=== PATIENT | male | born 1995 | race Two or more races ===

== ENCOUNTER 2018-06-05 15:00 | Emergency (ER) | payer OTHER ==
--- NOTE | 2018-06-05 16:59 | EDM.PDOC ---
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 Pt claims that he has been wearing enough warm clothing while working outdoor. Today when he was working, it has been charleen day and temp was around 18 F form being subzero for past few days. He started to feel hot. He continued to work and felt dizzy and tired. He took off his warm clothing and he felt better. But has been feeling tired and hence he came into emergency room.. Onset: Today Onset Date: 06/05/18 Onset Time: 13:00 Duration: Resolved Prior to Arrival Severity: Mild Improves with: Reports: None Worsens with: Reports: None Associated Symptoms: Reports: Weakness. Denies: Confusion, Chest Pain, Cough, Diaphoresis, Fever/Chills, Headaches, Nausea/Vomiting, Rash, Seizure, Shortness of Breath, Syncope ED ROS GENERAL - Review of Systems Review Of Systems: See Below Constitutional: Reports: Weakness. Denies: Fever, Chills HEENT: Denies: Rhinitis, Throat Pain, Throat Swelling Respiratory: Denies: Shortness of Breath, Cough, Sputum Cardiovascular: Denies: Chest Pain, Lightheadedness GI/Abdominal: Denies: Abdominal Pain, Nausea, Vomiting Skin: Denies: Bruising, Pruritis, Rash Neurological: Reports: Dizziness, Weakness. Denies: Confusion, Headache, Numbness, Tingling ED EXAM, GENERAL - Physical Exam Exam: See Below Exam Limited By: No Limitations General Appearance: Alert, WD/WN, No Apparent Distress Eye Exam: Bilateral Eye: EOMI, PERRL Ears: Normal External Exam, Normal Canal, Hearing Grossly Normal, Normal TMs Ear Exam: Bilateral Ear: Auricle Normal, Canal Normal, TM normal Nose: Normal Inspection, Normal Mucosa, No Blood Throat/Mouth: Normal Inspection, Normal Lips, Normal Teeth, Normal Gums, Normal Oropharynx, Normal Voice, No Airway Compromise Head: Atraumatic, Normocephalic Neck: Normal Inspection, Supple, Non-Tender, Full Range of Motion Respiratory/Chest: No Respiratory Distress, Lungs Clear, Normal Breath Sounds, No Accessory Muscle Use, Chest Non-Tender Cardiovascular: Normal Peripheral Pulses, Regular Rate, Rhythm, No Edema, No Gallop, No JVD, No Murmur, No Rub GI/Abdominal: Normal Bowel Sounds, Soft, Non-Tender, No Organomegaly, No Distention, No Abnormal Bruit, No Mass Extremities: Normal Inspection, Normal Range of Motion, Non-Tender, Normal Capillary Refill, No Pedal Edema Neurological: Alert, Oriented, CN II-XII Intact, Normal Cognition, Normal Gait, Normal Reflexes, No Motor/Sensory Deficits Skin Exam: Warm, Intact EKG INTERPRETATION EKG Date: 06/05/18 Rhythm: NSR Rate (Beats/Min): 74 [place]: Normal Course - Vital Signs Text/Narrative:: Pt's vitals are stable and his clinical exam is normal. His EKG is in Normal sinus rhythm and his chest X-ray is normal. His CBC and CMP appears normal. Pt reassured that he might have felt mild heat exhaustion from heat trapping from warm clothing, as he felt better as soon as he took of his clothing. t is feeling fine now.Presently symptomatic. Reassured. advised to drink plenty of fluids. Followup in clinic if symptoms worsen. Last Recorded V/S: Last Vital Signs Temp 97.1 F 06/05/18 15:47 Pulse 74 06/05/18 15:47 Resp 16 06/05/18 15:47 BP 154/82 H 06/05/18 15:47 Pulse Ox 99 06/05/18 15:47 - Orders/Labs/Meds Orders: Active Orders 24 hr Category Date Time Status EKG Documentation Completion [RC] ASDIRECTED Care 06/05/18 15:24 Active Chest 2V [CR] Stat Exams 06/05/18 15:24 Taken Labs: Laboratory Tests 06/05/18 06/05/18 Range/Units 16:00 16:00 WBC 7.3 (4.0-11.0) K/uL RBC 5.94 (4.50-6.50) M/uL Hgb 16.7 (13.0-18.0) g/dL Hct 47.7 (40.0-54.0) % MCV 80 (76-96) fL MCH 28.1 (27.0-32.0) pg MCHC 35.0 (31.0-35.0) g/dL RDW 13.0 (11.0-16.0) % Plt Count 231 (150-400) K/uL MPV 8.9 (6.0-10.0) fL Neut % (Auto) 77.4 H (45.0-70.0) % Lymph % (Auto) 16.1 L (20.0-40.0) % [place] % (Auto) 5.9 (3.0-10.0) % Eos % (Auto) 0.3 L (1.0-5.0) % Baso % (Auto) 0.3 (0.0-0.5) % Neut # (Auto) 5.64 (2.00-7.50) K/uL Lymph # (Auto) 1.17 L (1.50-4.00) K/uL [place] # (Auto) 0.43 (0.20-0.80) K/uL Eos # (Auto) 0.02 L (0.04-0.40) K/uL Baso # (Auto) 0.02 (0.02-0.10) K/uL Sodium 142 (136-145) mmol/L Potassium 4.0 (3.5-5.1) mmol/L Chloride 102 (98-107) mmol/L Carbon Dioxide 28.8 (21.0-32.0) mmol/L Anion Gap 15.2 H (5.0-15.0) mmol/L BUN 14 (8-26) mg/dL Creatinine 0.95 (0.70-1.30) mg/dL Est Cr Clr Drug Dosing 137.84 mL/min Estimated GFR (MDRD) > 60 (>60) MLS/MIN BUN/Creatinine Ratio 14.7 (6-25) Glucose 85 (74-100) mg/dL Calcium 9.4 (8.5-10.1) mg/dL Total Bilirubin 0.5 (0.0-1.0) mg/dL AST 59 H (15-37) U/L ALT 144 H (12-78) U/L Alkaline Phosphatase 57 (46-116) U/L Total Protein 8.4 H (6.4-8.2) g/dL Albumin 4.4 (3.4-5.0) g/dL Globulin 4.0 (2.2-4.2) g/dL Albumin/Globulin Ratio 1.1 (0.8-2.0) Departure - Departure Time of Disposition: 16:30 Disposition: Home, Self-Care 01 Condition: Good Clinical Impression: Heat exhaustion - Discharge Information *PRESCRIPTION DRUG MONITORING PROGRAM REVIEWED*: Not Applicable *COPY OF PRESCRIPTION DRUG MONITORING REPORT IN PATIENT PHILLIP: Not Applicable Instructions: Heat Exhaustion Information Referrals: PCP,None [Primary Care Provider] - Care Plan Goals: Return to clinic if symptoms persist or worsen. - Problem List & Annotations (1) Heat exhaustion SNOMED Code(s): 05141606 Code(s): T67.5XXA - HEAT EXHAUSTION, UNSPECIFIED, INITIAL ENCOUNTER Status : Acute - Problem List Review Problem List Initiated/Reviewed/Updated: Yes - My Orders Last 24 Hours: My Active Orders 06/05/18 15:24 EKG Documentation Completion [RC] ASDIRECTED Chest 2V [CR] Stat - Assessment/Plan Last 24 Hours: My Active Orders 06/05/18 15:24 EKG Documentation Completion [RC] ASDIRECTED Chest 2V [CR] Stat Assessment:: Mild heat exhaustion Plan: Pt's vitals are stable and his clinical exam is normal. His EKG is in Normal sinus rhythm and his chest X-ray is normal. His CBC and CMP appears normal. Pt reassured that he might have felt mild heat exhaustion from heat trapping from warm clothing, as he felt better as soon as he took of his clothing. t is feeling fine now.Presently symptomatic. Reassured. advised to drink plenty of fluids. Followup in clinic if symptoms worsen.
--- NOTE | 2018-06-06 08:09 | CR ---
PA AND LATERAL CHEST, 06/05/18 No priors. The heart size is normal. The lungs are clear. No pneumothorax. No pleural effusions. No evidence of acute intrathoracic disease. [id number] [facility]
== END 2018-06-05 16:40 | disposition home or self-care (01) ==
LOC: LB.ED 15:00
DX: T67.5XXA Heat exhaustion, unspecified, initial encounter (principal); X32.XXXA Exposure to sunlight, initial encounter
CPT/HCPCS: 36415; 71046; 80053; 85025; 93005; 99284-25

== ENCOUNTER 2018-06-07 08:03 | Emergency (ER) | payer OTHER ==
[2018-06-07] MEDS ORDERED: GI Cocktail Oral Solution 30 ML PO ONE (08:34)
--- NOTE | 2018-06-07 08:36 | EDM.PDOC ---
ED HPI GENERAL MEDICAL PROBLEM - General Chief Complaint: Cardiovascular Problem Stated Complaint: PRESSURE IN CHEST AREA Time Seen by Provider: 06/07/18 08:20 Source of Information: Reports: Patient, RN History Limitations: Reports: No Limitations - History of Present Illness INITIAL COMMENTS - FREE TEXT/NARRATIVE: 23 yr male presents with chest pressure to left chest, started last night, states nausea today, when on the way to his work site. Left Chest Pain Score (Numeric/FACES): 2 - Related Data Allergies Allergy/AdvReac Type Severity Reaction Status Date / Time No Known Allergies Allergy Verified 06/07/18 08:50 ED ROS GENERAL - Review of Systems Review Of Systems: See Below Constitutional: Reports: No Symptoms. Denies: Fever, Chills HEENT: Reports: No Symptoms. Denies: Sinus Problem, Throat Pain Respiratory: Reports: No Symptoms. Denies: Shortness of Breath, Cough Cardiovascular: Reports: Chest Pain. Denies: Blood Pressure Problem, Dyspnea on Exertion, Edema, Palpitations Endocrine: Reports: No Symptoms GI/Abdominal: Reports: Nausea. Denies: Constipation, Diarrhea, Vomiting : Reports: No Symptoms Musculoskeletal: Reports: No Symptoms Skin: Reports: No Symptoms Neurological: Reports: No Symptoms Psychiatric: Reports: No Symptoms Hematologic/Lymphatic: Reports: No Symptoms Immunologic: Reports: No Symptoms ED EXAM, GENERAL - Physical Exam Exam: See Below Exam Limited By: No Limitations General Appearance: Alert, No Apparent Distress Eye Exam: Bilateral Eye: PERRL Ears: Normal External Exam, Hearing Grossly Normal Ear Exam: Bilateral Ear: Auricle Normal Nose: Normal Inspection, Normal Mucosa Throat/Mouth: Normal Inspection, Normal Lips, Normal Voice, No Airway Compromise Head: Atraumatic, Normocephalic Neck: Normal Inspection, Supple, Non-Tender Respiratory/Chest: No Respiratory Distress, Lungs Clear, Normal Breath Sounds. No: Crackles, Rhonchi Cardiovascular: Normal Peripheral Pulses, Regular Rate, Rhythm, No Edema. No: No Murmur GI/Abdominal: Normal Bowel Sounds, Soft, Non-Tender Back Exam: Normal Inspection, Full Range of Motion Extremities: Normal Inspection, Normal Range of Motion Neurological: Alert, Oriented, Normal Cognition Psychiatric: Normal Affect, Normal Mood Skin Exam: Warm, Dry, Normal Color Lymphatic: No Adenopathy Course - Orders/Labs/Meds Orders: Active Orders 24 hr Category Date Time Status EKG Documentation Completion [RC] ASDIRECTED Care 06/07/18 08:26 Active Labs: Laboratory Tests 06/07/18 06/07/18 06/07/18 Range/Units 08:25 08:25 08:26 WBC 5.4 D (4.0-11.0) K/uL RBC 5.85 (4.50-6.50) M/uL Hgb 16.5 (13.0-18.0) g/dL Hct 47.5 (40.0-54.0) % MCV 81 (76-96) fL MCH 28.2 (27.0-32.0) pg MCHC 34.7 (31.0-35.0) g/dL RDW 13.0 (11.0-16.0) % Plt Count 220 (150-400) K/uL MPV 8.9 (6.0-10.0) fL Neut % (Auto) 64.0 (45.0-70.0) % Lymph % (Auto) 26.5 (20.0-40.0) % [place] % (Auto) 8.2 (3.0-10.0) % Eos % (Auto) 0.9 L (1.0-5.0) % Baso % (Auto) 0.4 (0.0-0.5) % Neut # (Auto) 3.42 (2.00-7.50) K/uL Lymph # (Auto) 1.42 L (1.50-4.00) K/uL [place] # (Auto) 0.44 (0.20-0.80) K/uL Eos # (Auto) 0.05 (0.04-0.40) K/uL Baso # (Auto) 0.02 (0.02-0.10) K/uL Sodium 141 (136-145) mmol/L Potassium 4.2 (3.5-5.1) mmol/L Chloride 105 (98-107) mmol/L Carbon Dioxide 24.4 (21.0-32.0) mmol/L Anion Gap 15.8 H (5.0-15.0) mmol/L BUN 14 (8-26) mg/dL Creatinine 0.84 (0.70-1.30) mg/dL Est Cr Clr Drug Dosing 155.89 mL/min Estimated GFR (MDRD) > 60 (>60) MLS/MIN BUN/Creatinine Ratio 16.7 (6-25) Glucose 97 (74-100) mg/dL Calcium 9.0 (8.5-10.1) mg/dL Total Bilirubin 0.5 (0.0-1.0) mg/dL AST 61 H (15-37) U/L ALT 154 H (12-78) U/L Alkaline Phosphatase 50 (46-116) U/L Troponin I < 0.017 (0.000-0.060) ng/mL Total Protein 8.1 (6.4-8.2) g/dL Albumin 4.0 (3.4-5.0) g/dL Globulin 4.1 (2.2-4.2) g/dL Albumin/Globulin Ratio 1.0 (0.8-2.0) Meds: Medications Discontinued Medications Generic Name Dose Route Start Last Admin Trade Name Freq PRN Reason Stop Dose Admin Al Hydroxide/Mg Hydroxide 30 ml 06/07/18 08:34 06/07/18 08:40 Gi Cocktail PO 06/07/18 08:35 30 ml ONETIME ONE Administration Sodium Chloride 1,000 mls @ 999 mls/hr 06/07/18 08:45 06/07/18 08:41 Normal Saline IV 999 mls/hr ASDIRECTED INÉS Administration Ondansetron HCl 4 mg 06/07/18 08:46 06/07/18 09:42 Zofran Odt PO 4 mg ONETIME PRN Administration Nausea Ondansetron HCl Confirm 06/07/18 09:48 Zofran Odt Administered 06/07/18 09:49 Dose 4 mg .ROUTE .STK-MED ONE - Re-Assessments/Exams Free Text/Narrative Re-Assessment/Exam: 06/07/18 15:11 LEE Reviewed labs and EKG with pt. No changes noted, from previous ER visit. Advised on no heart involvement with this chest pressure he was experiencing. Pain was relieved with GI cocktail and Zofran 4 mg PO. Pt did have hot wings last night, this pain started late in evening, he did sleep during the night and now had some nausea this am. He was concerned with angina or heart pain. With symptoms improving with IV fluids and GI cocktail, symptoms probably related to gastritis. Recommend Prilosec 20 mg PO daily OTC x 2 weeks and may take Tums 2 tabs tid as needed. Recommend F/U with PCP in 1-2 weeks for further evaluation. Discussed elevated AST/ALT results with pt and cautioned on alcohol use and to limit alcohol to 2 drinks/day or less. Recommend pt to drink adequate fluids to prevent dehydration and try to have 4-6 bottles of water daily and limit intake of spicy/acid foods. RTC if symptoms return or to ER if symptoms worsen. Departure - Departure Time of Disposition: 10:24 Disposition: Home, Self-Care 01 Condition: Good Clinical Impression: Gastritis - Discharge Information *PRESCRIPTION DRUG MONITORING PROGRAM REVIEWED*: Not Applicable *COPY OF PRESCRIPTION DRUG MONITORING REPORT IN PATIENT PHILLIP: Not Applicable Referrals: PCP,None [Primary Care Provider] - Forms: ED Department Discharge - My Orders Last 24 Hours: My Active Orders 06/07/18 08:26 EKG Documentation Completion [RC] ASDIRECTED - Assessment/Plan Last 24 Hours: My Active Orders 06/07/18 08:26 EKG Documentation Completion [RC] ASDIRECTED Plan: Recommend Prilosec 20 mg PO daily OTC x 2 weeks and may take Tums 2 tabs tid as needed. Recommend F/U with PCP in 1-2 weeks for further evaluation. Discussed elevated AST/ALT results with pt and cautioned on alcohol use and to limit alcohol to 2 drinks/day or less. Recommend pt to drink adequate fluids to prevent dehydration and try to have 4-6 bottles of water daily and limit intake of spicy/acid foods. RTC if symptoms return or to ER if symptoms worsen.
[2018-06-07] MEDS ORDERED: Sodium Chloride 0.9% 1,000 ML IV SCH (08:45)
[2018-06-07] MEDS ORDERED: Ondansetron 4 MG Tab.DIS PO PRN (08:46)
[2018-06-07] MEDS ORDERED: Ondansetron 4 MG Tab.DIS ONE (09:48)
== END 2018-06-07 10:30 | disposition home or self-care (01) ==
LOC: LB.ED 08:03
DX: K29.70 Gastritis, unspecified, without bleeding (principal)
CPT/HCPCS: 36415; 80053; 84484; 85025; 93005; 96360; 99285-25; A9270-GY; J7030